=== PATIENT | male | born 1940 | race African-American/Black ===

== ENCOUNTER 2016-12-12 17:28 | Inpatient (IN) ==
[2016-12-12] MEDS ORDERED: ASPIRIN PO STA (17:37)
[2016-12-12] MEDS ORDERED: ASPIRIN PO ONE (17:38)
--- NOTE | 2016-12-12 17:52 | EKG Report ---
Test Performed on : 12/12/2016 5:43:03 PM Test Reason : chest pain Blood Pressure : / mmHG Vent. Rate : 077 BPM Atrial Rate : 077 BPM P-R Int : 158 ms QRS Dur : 074 ms QT Int : 402 ms P-R-T Axes : 070 034 049 degrees QTc Int : 454 ms Sinus rhythm. with occasional premature ventricular complexes. Possible Left atrial enlargement Left ventricular hypertrophy Nonspecific ST and T wave abnormality Abnormal ECG When compared with ECG of 23-SEP-2015 20:43, premature ventricular complexes. are now present T wave inversion less evident in Inferior leads Unconfirmed Result
[2016-12-12 18:19] LABS: MANUAL DIFF NEEDED? NO
[2016-12-12] MEDS ORDERED: G.I. COCKTAIL PO ONE (18:29)
[2016-12-12 18:40] LABS: BASO% 0.2 % (0.0-0.8); EOS# 0.02 X1000 (0.0-0.7); EOS% 0.2 % (0.0-10.0); HEMATOCRIT 23.3 % (42.0-52.0); HEMOGLOBIN 7.5 g/dL (14.0-18.0); IMM GRAN# 0.04 X1000 (0.0-0.04); IMM GRAN% 0.4 % (0.0-0.5); LYMPH% 26.9 % (20.5-51.1); MCH 24.8 PG (27-31); MCHC 32.2 g/dL (33-37); MCV 76.9 FL (81-99); MONO% 12.9 % (1.7-9.3); NEUT% 59.4 % (42.2-75.2); PLT 286 X1000 (130-400); RBC 3.03 XMIL (4.7-6.1)
[2016-12-12 18:43] LABS: ALBUMIN 3.6 g/dL (3.5-5.0); TOTAL BILIRUBIN 0.3 mg/dL (0.20-1.00); TOTAL PROTEIN 6.8 g/dL (6.3-8.3)
[2016-12-12 18:47] LABS: INR 1.09 (0.86-1.15); PROTIME 14.4 Seconds (12.1-15.5)
[2016-12-12 18:48] LABS: PTT PL 36.6 Seconds (22.6-43.9)
--- NOTE | 2016-12-12 18:51 | Diag Imaging Result Doc PS360 ---
EXAM: CHEST-PORTABLE HISTORY: CP TECHNIQUE: Erect AP portable at 1756 COMMENT: There is no evidence of acute cardiac or pulmonary disease and compared to 09/23/2015 there is been no significant change. IMPRESSION: Stable chest. Electronically signed by Dwight Rosen 12/12/2016 6:48 PM
[2016-12-12 19:01] LABS: CK INDEX 0.6 (0.0-2.5); CK-MB 1.31 ng/mL (0.0-5.0)
--- NOTE | 2016-12-12 19:44 | EKG Report ---
Test Performed on : 12/12/2016 7:39:35 PM Test Reason : cp Blood Pressure : / mmHG Vent. Rate : 077 BPM Atrial Rate : 077 BPM P-R Int : 166 ms QRS Dur : 078 ms QT Int : 380 ms P-R-T Axes : 071 041 054 degrees QTc Int : 430 ms Sinus rhythm. with occasional premature ventricular complexes. Possible Left atrial enlargement Borderline ECG When compared with ECG of 12-DEC-2016 17:43, (Unconfirmed) No significant change was found Unconfirmed Result
[2016-12-12 19:55] LABS: OCCULT BLOOD 1 POSITIVE (NEGATIVE)
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
[2016-12-12] MEDS ORDERED: PROTONIX IV ONE (19:59)
[2016-12-12] MEDS ORDERED: SODIUM CHLORIDE 0.9% INJ ONE (19:59)
[2016-12-12 20:01] LABS: URINE CULTURE PL NEEDED? NO
[2016-12-12 20:02] LABS: URINE SOURCE CLEAN CATCH
[2016-12-12 20:03] LABS: BILIRUBIN URINE NEGATIVE (NEGATIVE); BLOOD URINE NEGATIVE (NEGATIVE); CLARITY CLEAR (CLEAR); COLOR YELLOW; GLUCOSE URINE NEGATIVE (NEGATIVE); LEUKOCYTES URINE 2+ (NEGATIVE); NITRITE URINE NEGATIVE (NEGATIVE); PROTEIN URINE 1+(30 mg/dL) mg/dL (NEGATIVE); UROBILINOGEN URINE NORMAL
[2016-12-12 20:05] LABS: URINE EPITHELIAL CELLS <10 /HPF (<10); URINE RBC <10 /HPF (<10); URINE WBC <10 /HPF (<10)
[2016-12-12 20:30] LABS: CK INDEX 0.6 (0.0-2.5); CK-MB 1.32 ng/mL (0.0-5.0)
--- NOTE | 2016-12-12 20:35 | Diag Imaging Result Doc PS360 ---
EXAM: ANGIOGRAM/PULMONARY ARTERIES HISTORY: chest pain, sob, elevated ddimer TECHNIQUE: CT of the chest with intravenous contrast COMMENT: There are no previous studies available for comparison. There are no filling defects demonstrated in the pulmonary arteries. The aorta is not distended and there is no evidence of dissection. There are extensive calcifications present in the coronary arteries and there is been previous sternotomy. There is COPD. There are patchy opacities in the right upper lobe extending to the hilum. There is a masslike opacity which encases the right upper lobe bronchus and upper lobe pulmonary vessels. There are calcified hilar and subcarinal nodes. IMPRESSION: Right upper lobe parahilar mass. Lymphangitic spread and/or postobstructive pneumonitis in the right upper lobe. No evidence of pulmonary emboli. Electronically signed by Dwight Rosen 12/12/2016 8:33 PM
[2016-12-12 20:36] LABS: IRON SATURATION 6 %; TIBC 269 ug/dL; TOTAL IRON 15 ug/dL (53-167); UNBOUND IRON 254 ug/dL (112-346)
[2016-12-12] MEDS ORDERED: PROTONIX 80 MG in NS 80 ML IV ONE (21:10)
--- NOTE | 2016-12-12 21:12 | ED EKG INTERP ---
This chart was entered by Nicolasa Samuels Scribe, acting as scribe for uJan Pressley MD. EKG Interpretation - EKG Time of EKG reading by physician:: 19:39 EKG Read and Signed by:: Juan Pressley EKG Interpretation (*Must complete 3 of following elements*): Normal Rate: 77 Rhythm: Sinus Rhythm with occasional premature ventricular complexes Comments: Bordelrine ECG, Possible left atrial enlargement This chart was documented by the indicated scribe, (Nicolasa Samuels Scribe) and accurately reflects the services I performed and decisions made by me, Juan rPessley MD, as attested by the provider's signature.
[2016-12-13 07:33] LABS: AGAP 11; ALBUMIN 3.1 g/dL (3.5-5.0); ALKALINE PHOSPHATASE 51 U/L (32-122); BUN 16 mg/dL (8-22); CALCIUM 8.3 mg/dL (8.8-10.2); CHLORIDE 104 mmol/L (98-107); COSMO 278; GOT 19 U/L (10-34); GPT 8 U/L (10-44); HDL 41 mg/dL (35-55); LDL 62 mg/dL; POTASSIUM 3.9 mmol/L (3.5-5.1); SODIUM 139 mmol/L (136-145); TCO2 24 mmol/L (25-35); TOTAL PROTEIN 5.9 g/dL (6.3-8.3); TRIGLYCERIDES 78 mg/dL (39-160); VLDL 16 mg/dL
[2016-12-13 08:03] LABS: HEMATOCRIT 21.1 % (42.0-52.0); HEMOGLOBIN 6.8 g/dL (14.0-18.0); MCH 24.9 PG (27-31); MCHC 32.2 g/dL (33-37); MCV 77.3 FL (81-99); RBC 2.73 XMIL (4.7-6.1)
[2016-12-13] MEDS ORDERED: BENADRYL PO ONE (10:42)
[2016-12-13] MEDS ORDERED: TYLENOL PO ONE (10:42)
[2016-12-13] MEDS ORDERED: NS 500 ML ONE (12:15)
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
[2016-12-13 20:09] LABS: HEMATOCRIT 28.2 % (42.0-52.0); HEMOGLOBIN 9.2 g/dL (14.0-18.0)
[2016-12-13] MEDS: DILAUDID IV PRN (21:53)
[2016-12-13] MEDS: ZOSYN 3.375 GM/NS 3.375 GM/50 ML IVPB IV SCH (21:54)
[2016-12-13] MEDS: NS 1,000 ML IV SCH (21:54)
[2016-12-13] MEDS: DUONEB (A & A) INH SCH (23:25)
[2016-12-14] MEDS: DUONEB (A & A) INH SCH ×6 (03:20→23:07)
[2016-12-14] MEDS: ZOSYN 3.375 GM/NS 3.375 GM/50 ML IVPB IV SCH ×4 (04:53→21:51)
[2016-12-14] MEDS: DILAUDID IV PRN ×3 (05:54→22:01)
[2016-12-14 07:17] LABS: HEMATOCRIT 26.8 % (42.0-52.0); HEMOGLOBIN 8.7 g/dL (14.0-18.0); MCH 26.4 PG (27-31); MCHC 32.5 g/dL (33-37); MCV 81.2 FL (81-99); MPV 10.1 FL (7.4-10.4); RBC 3.3 XMIL (4.7-6.1)
[2016-12-14 07:35] LABS: AGAP 12; BUN 11 mg/dL (8-22); CALCIUM 8.2 mg/dL (8.8-10.2); CHLORIDE 103 mmol/L (98-107); COSMO 277; POTASSIUM 3.8 mmol/L (3.5-5.1); SODIUM 139 mmol/L (136-145); TCO2 24 mmol/L (25-35)
[2016-12-14] MEDS: NS 1,000 ML IV SCH ×2 (09:28→18:43)
[2016-12-14] MEDS ORDERED: MYLICON DROPS ONE (12:36)
[2016-12-14] MEDS ORDERED: XYLOCAINE-MPF 2% ONE (13:09)
[2016-12-14] MEDS ORDERED: DIPRIVAN 1% ONE (13:23)
--- NOTE | 2016-12-14 16:49 | PROGRESS NOTE ---
DATE: 12/14/2016 SUBJECTIVE: Today Mr. Minaya refers to be doing okay. He does not have any complaints. When we went in for the interview, he was surrounded with a lot of family members including the , kids, nieces, and grandkids, a total of more than 10 people in his room. OBJECTIVE: Vital Signs: Blood pressure is 145/66, pulse of 81, respirations 20, temperature is 99.9 degrees. General: Mr. Minaya is a 76-year-old male. He was in bed, no distress. HEENT: Mucosa is pink and moist. Anicteric. Acyanotic. Neck: Supple. Chest: Air entry was bilaterally reduced. There were a few crackles in the right middle side of the posterior lung neumann. Cardiovascular: Regular rate and rhythm. Abdomen: Soft. Extremities: No pedal edema. Central Nervous System: The patient is alert and oriented x4. LABORATORY DATA: WBC is 9.09, hemoglobin is 8.7, platelet count of 232,000. Chemistry is reviewed and completely normal. PROCEDURE DONE: The patient has had an esophagogastroduodenoscopy done. We are still pending the official report. ASSESSMENT AND PLAN: 1. Iron deficiency anemia, likely from chronic gastrointestinal blood loss. The patient has had an esophagogastroduodenoscopy. We are still pending the official report. My guess is that he probably will end up getting a colonoscopy as well. The patient has had 2 packed red blood cells transfusion. We will continue with the proton pump inhibitor. 2. Right upper lung mass suspicious for malignancy. The patient is pending to be evaluated by pulmonary medicine. 3. Hypertension, controlled. 4. Tobacco abuse. The patient has been counseled. 5. Chronic obstructive pulmonary disease with possible postobstructive pneumonitis. We will continue with the current antibiotics. cc: Serge Kim MD
--- NOTE | 2016-12-14 17:53 | OPERATIVE NOTE ---
PROCEDURE DATE: 12/14/2016 PROCEDURE: Esophagogastroduodenoscopy. PREOPERATIVE DIAGNOSIS: Anemia, possible gastrointestinal bleed. POSTOPERATIVE DIAGNOSIS: Anemia with normal esophagogastroduodenoscopy up to the second portion of the duodenum. HISTORY: This 76-year-old gentleman, admitted to hospital with weakness, was found to have profound anemia. He is complaining of some dark stool for the past 2 weeks. The possibility of upper gastrointestinal bleed. Esophagogastroduodenoscopy was done to identify the etiology and treat accordingly. DESCRIPTION OF PROCEDURE: Informed consent obtained from the patient. The procedure, risks, benefits, and alternatives were explained in layman's terms. He understood. All his pertinent questions were answered. Patient was brought to the endoscopy unit and was premedicated as per Anesthesia. After adequate sedation, while he was lying in left lateral position, the gastroscope was introduced into the posterior pharynx and advanced under direct vision into the esophagus. Esophagus in its entire length appeared to be normal. No esophagitis, webs, rings, or varices were seen. The scope was then passed through the esophagus into the stomach. Stomach was examined both straight and retroflexed view, which revealed normal cardia, fundus, body, and antrum. The scope was then passed through the normal pylorus, into the duodenal bulb, and then second part duodenum. Both appeared to be normal. The scope was then removed. Patient tolerated procedure well. No complications noted. Patient was then transferred to the recovery area in a stable condition. IMPRESSION: Anemia with normal esophagogastroduodenoscopy. I did not see any pathology in his upper GI that resulted in anemia. Chronic blood loss from lower GI pathology is a possibility. However, he has had a colonoscopy with Dr. Adame a couple years ago. I do not have the report with me. He was also found to have a lung mass and workup is in progress. Dr. Simpson is scheduled to see him as a consultation. The patient is adamant about going home as well. Option would be to let him go home and do the colonoscopy as an outpatient, or if he stays we will proceed with a colonoscopy once is okay with Dr. Simpson or after his workup. I have explained the findings and plan with the patient's and his son. They were present at bedside. They understood. All the pertinent questions answered. cc: Agus Durham MD
[2016-12-15] MEDS: ZOSYN 3.375 GM/NS 3.375 GM/50 ML IVPB IV SCH ×4 (02:52→22:08)
[2016-12-15] MEDS: DUONEB (A & A) INH SCH ×6 (03:05→23:45)
[2016-12-15] MEDS: NS 1,000 ML IV SCH (05:39)
[2016-12-15] MEDS: PRILOSEC PO SCH (06:13)
[2016-12-15 07:18] LABS: MANUAL DIFF NEEDED? NO
[2016-12-15 07:25] LABS: BASO% 0.1 % (0.0-0.8); EOS# 0.01 X1000 (0.0-0.7); EOS% 0.1 % (0.0-10.0); HEMATOCRIT 25.4 % (42.0-52.0); HEMOGLOBIN 8.2 g/dL (14.0-18.0); IMM GRAN# 0.02 X1000 (0.0-0.04); IMM GRAN% 0.2 % (0.0-0.5); LYMPH# 1.36 X1000 (1.2-3.4); LYMPH% 14.8 % (20.5-51.1); MCH 25.8 PG (27-31); MCHC 32.3 g/dL (33-37); MCV 79.9 FL (81-99); MONO# 1.13 X1000 (0.11-0.59); MONO% 12.3 % (1.7-9.3); MPV 9.8 FL (7.4-10.4); NEUT% 72.5 % (42.2-75.2); PLT 215 X1000 (130-400); RBC 3.18 XMIL (4.7-6.1)
[2016-12-15 07:50] LABS: AGAP 12; BUN 7 mg/dL (8-22); CHLORIDE 105 mmol/L (98-107); COSMO 278; POTASSIUM 4.2 mmol/L (3.5-5.1); SODIUM 140 mmol/L (136-145); TCO2 23 mmol/L (25-35)
[2016-12-15] MEDS: DILAUDID IV PRN ×2 (08:52→15:18)
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
--- NOTE | 2016-12-15 12:12 | PROGRESS NOTE ---
DATE: 12/15/2016 SUBJECTIVE: Patient states he feels a little better. He had an EGD yesterday for evaluation of anemia. EGD was normal. There was no noted pathology in the upper GI tract. He reports having a colonoscopy in the past but is not sure how long it has been. It may have been done by Dr. Adame. He states it was done at the [facility] facility. He is having workup for lung mass with pulmonary consultation. VITAL SIGNS: Temperature 98.2 degrees, pulse 80, respirations 18, blood pressure 155/77. LABORATORY: Hematology: White count 9.21, hemoglobin 8.2, hematocrit 25.4, MCV 79.9. Chemistry: Sodium 140, potassium 4.2, chloride 105, CO2 23, BUN 7, creatinine 1.2. ASSESSMENT AND PLAN: Anemia with possible gastrointestinal bleed. EGD was normal. He may need a colonoscopy but that can be done as an outpatient. Continue workup for right upper lung mass. We will continue to follow during his hospital course and follow up in the office after discharge and further plans will be made as needed. Patient and family voiced understanding. I have also discussed this with Dr. Kim, who was at bedside. Dictated by AGNES Gee for Agus Durham MD cc: AGNES Paez MD [facility]
--- NOTE | 2016-12-15 12:19 | PROGRESS NOTE ---
DATE: 12/15/2016 SUBJECTIVE: Today, Mr. Minaya refers to be doing a lot better. He continues to cough with some white expectoration, but no chest pain and no shortness of breath. The patient is still pending evaluation from Pulmonary Medicine. OBJECTIVE: Vital signs: Blood pressure is 155/77, pulse is 80, respirations 18, temperature 98.2 degrees. The patient is saturating 96% on room air. General: Mr. Minaya is a 76-year-old male. He is in bed. He does not seem to be in any remarkable distress. HEENT: Mucosa is pink and moist. Anicteric. Acyanotic. Neck: Supple. Lungs: Good air entry bilateral. I did not appreciate any crepitations. Cardiovascular: Regular rate and rhythm. Abdomen: Soft, nontender. There are bowel sounds present. Extremities: No pedal edema. Chest: On the chest wall, there is an old sternotomy scar. Central Nervous System: Patient is alert and oriented x4. There is no focal neurological deficit. LABORATORY AND IMAGING DATA: WBC is 9.21. Hemoglobin is 8.2. Platelet count is 215,000. Chemistries reviewed and completely normal. Review of the EGD report shows a normal EGD. ASSESSMENT: 1. Iron-deficiency anemia. Normal esophagogastroduodenoscopy. Patient is pending further evaluation for possible colonoscopy. Upon review of Dr. Durham's note, it appears that this will be done on an outpatient basis. 2. Right upper lung mass suspicious for malignancy. Patient is coughing white expectoration. There is also the belief that there could be some superimposed postobstructive pneumonitis. We will continue with the current antibiotics and wait for Dr. Luu's evaluation. 3. Hypertension. Stable. 4. Tobacco abuse. Patient has been counseled. 5. Chronic obstructive pulmonary disease. Currently not in exacerbation. In general, I think Mr. Minaya is doing relatively fine. Hemoglobin and hematocrit continue to be stable. We will discontinue the IV fluids today, continue with the antibiotics, and await Pulmonary Medicine evaluation. cc: Serge Kim MD
[2016-12-15] MEDS ORDERED: NS 1,000 ML ONE (15:22)
[2016-12-16] MEDS: DILAUDID IV PRN ×2 (00:51→08:20)
[2016-12-16] MEDS: ZOSYN 3.375 GM/NS 3.375 GM/50 ML IVPB IV SCH ×2 (02:50→08:27)
[2016-12-16] MEDS: DUONEB (A & A) INH SCH ×2 (03:00→07:35)
[2016-12-16] MEDS: PRILOSEC PO SCH (06:12)
[2016-12-16 06:23] LABS: MANUAL DIFF NEEDED? NO
[2016-12-16 06:27] LABS: BASO% 0.1 % (0.0-0.8); EOS# 0.07 X1000 (0.0-0.7); HEMATOCRIT 25.4 % (42.0-52.0); IMM GRAN# 0.02 X1000 (0.0-0.04); IMM GRAN% 0.3 % (0.0-0.5); LYMPH# 1.51 X1000 (1.2-3.4); LYMPH% 21.8 % (20.5-51.1); MCH 25.3 PG (27-31); MCHC 31.5 g/dL (33-37); MCV 80.4 FL (81-99); MONO# 0.89 X1000 (0.11-0.59); MONO% 12.8 % (1.7-9.3); MPV 9.5 FL (7.4-10.4); PLT 185 X1000 (130-400); RBC 3.16 XMIL (4.7-6.1)
[2016-12-16 07:04] LABS: AGAP 10; BUN 7 mg/dL (8-22); CALCIUM 8.1 mg/dL (8.8-10.2); CHLORIDE 104 mmol/L (98-107); COSMO 274; POTASSIUM 4.1 mmol/L (3.5-5.1); SODIUM 138 mmol/L (136-145); TCO2 24 mmol/L (25-35)
[2016-12-16 07:20] VITALS: BP 159/94
[2016-12-16] MEDS ORDERED: AUGMENTIN PO SCH (11:00)
--- NOTE | 2016-12-16 13:02 | PROGRESS NOTE ---
DATE: 12/16/2016 SUBJECTIVE: Patient is feeling better. He is in the bathroom getting a shower. Talked with patient's , she states they plan to let him go home today. OBJECTIVE: Vital Signs: Temperature 98.6 degrees, pulse 81, respirations 17, blood pressure 159/94. LABORATORY: Hematology: White count 6.93, hemoglobin 8.0, hematocrit 25.4, MCV 80.4. Chemistry: Sodium 138, potassium 4.1, chloride 104, CO2 24, BUN 7, creatinine 1.2. ASSESSMENT AND PLAN: 1. Anemia. 2. Right upper lung mass following with Dr. Luu. 3. Questionable gastrointestinal bleed with normal EGD. 4. Chronic obstructive pulmonary disease. 5. Hypertension. PLAN: Continue supportive care. Patient will most likely be discharged today and we will follow with him in the office. He will most likely need a colonoscopy for further evaluation of his anemia. I have discussed this case with Dr. Durham. Further plans will be made according to findings and as needed. Dictated by AGNES Gee for Agus Durham MD cc: AGNES Paez MD
--- NOTE | 2016-12-16 13:43 | DISCHARGE SUMMARY ---
ADMISSION DATE: 12/12/2016 DISCHARGE DATE: 12/16/2016 DISPOSITION: Home. FOLLOWUP: 1. Follow up with Dr. Luu. Patient is supposed to call Dr. Luu's office on 12/18/2016, to arrange for the bronchoscopy. 2. Patient is also supposed to call the office of Dr. Durham to arrange for the colonoscopy. INVASIVE PROCEDURE DONE DURING THIS ADMISSION.: EGD was done by Dr. Durham and it was completely normal. CONSULTATIONS DURING THIS ADMISSION: 1. GI was consulted. Patient was seen by Dr. Durham. 2. Pulmonary medicine was also consulted. Patient was seen by Dr. Luu. IMAGING STUDIES OF SIGNIFICANCE: CTA was done which revealed a right upper lobe perihilar mass, lymphangitic spread and/or post obstructive pneumonitis in the right upper lobe (adjusted). ADMISSION DIAGNOSES: 1. Gastrointestinal bleed. 2. A right lung mass. 3. Hypertension. DIAGNOSIS AT THE TIME OF DISCHARGE: 1. Iron deficiency anemia secondary to chronic blood loss. Esophagogastroduodenoscopy was normal. The patient is pending colonoscopy which will be arranged on outpatient basis with Dr. Durham. 2. Right upper lobe mass suspicious for malignancy. Patient was evaluated by Dr. Luu. There is a plan for bronchoscopy on Sunday. Patient will call Dr. Luu's office for arrangement. 3. Hypertension, stable. 4. Tobacco abuse. Patient has been counseled. 5. Chronic obstructive pulmonary disease, currently not in exacerbation. 6. Possible post obstructive pneumonitis versus lymphangitic spread of cancer. DISCHARGE MEDICATIONS: 1. Metoprolol 50 mg daily. 2. Simvastatin 20 mg at bedtime. 3. Omeprazole 20 mg daily. 4. Lisinopril 20 mg daily. 5. Aspirin 81 mg daily. 6. Augmentin 875 p.o. b.i.d. PRESENTING COMPLAINT: Intermittent chest pain. HISTORY OF PRESENTING COMPLAINT: Mr. Minaya is a 76-year-old gentleman, who presented to [facility] initially because of intermittent chest pain for about 2 weeks, which has progressively gotten worse. Patient was evaluated at the time. He was noted to have a hemoglobin of 7.5 and Hemoccult was positive. A CT scan of the chest revealed a right upper lobe mass with possible lymphangitic spread versus post obstructive pneumonitis. The patient was subsequently transferred to [facility] for GI evaluation, as well as pulmonary evaluation. HOSPITAL COURSE: Patient did pretty well. He was started on antibiotics, was seen by Dr. Durham. EGD was done which was unremarkable. The patient was transfused 2 PRBC's, and hemoglobin and hematocrit has been relatively stable. So, there was a decision to do a colonoscopy on outpatient basis. Pulmonary medicine was also consulted. Patient was seen by Dr. Luu. He evaluated the lung mass in the right upper lobe. He decided to do a bronchoscopy, but arrangement has been done to do that on Sunday on outpatient basis. The patient will be going home on antibiotic for the presumed post obstructive pneumonitis versus possible infectious component. Today he refers to be stable. He denies any complaint. His vitals: Blood pressure is 159/94, pulse is 73, respirations 20, temperature 98.6 degrees. The patient is clinically stable. He is going to be discharged. Disposition is home. FOLLOW UP: 1. Dr. Luu. Patient will call him on Sunday, December 18, to arrange for the procedure, which is bronchoscopy, on 12/20/2016. 2. The patient will also follow up with Dr. Durham for outpatient colonoscopy. 3. At the time of discharge, there is not any pending labs. TIME SPENT FOR DISCHARGE: 35 minutes. cc: Serge Kim MD
[2016-12-16] MEDS ORDERED: PROTONIX IV SCH (16:41)
== END 2016-12-16 10:50 | disposition home or self-care (01) ==
LOC: P.ED 17:28 → SUATTDRO 21:28 → P.MEDSURG 21:28 → 3N 12-13 17:25
PROVIDERS: ATTEND Internal Medicine